=== PATIENT | male | born 1975 | race Caucasian/White ===

== ENCOUNTER 2018-06-02 09:50 | Emergency (ER) | payer OTHER ==
[~2018-06-02] VITALS: Ht 182.9 cm; Wt 103.2 kg
[2018-06-02 09:52] VITALS: BP 134/91
[2018-06-02] MEDS ORDERED: DIPH,PERTUSS(ACELL),TET VAC/PF 0.5 ML IM-VACC ONE ×2 (10:21→11:00)
[2018-06-02] MEDS ORDERED: LIDOCAINE-MPF 1%, 5ML INFIL ONE (10:30)
[2018-06-02] MEDS ORDERED: L.E.T SOLUTION TP ONE (11:20)
[2018-06-02] MEDS ORDERED: BACITRACIN ZINC OINT 500U/GM, 0.9 GM ONE (12:51)
== END 2018-06-02 13:35 | disposition home or self-care (01) ==
LOC: ED 13:00
DX: S61.210A Laceration without foreign body of right index finger without damage to nail, initial encounter (principal); X58.XXXA Exposure to other specified factors, initial encounter; Y93.89 Activity, other specified; Y92.69 Other specified industrial and construction area as the place of occurrence of the external cause; Y99.8 Other external cause status
CPT/HCPCS: 12002; 90471; 90715